=== PATIENT | male | born 1990 | race Caucasian/White ===

== ENCOUNTER 2017-05-12 21:43 | Emergency (ER) | payer OTHER | END 2017-05-13 05:00 | disposition home or self-care (01) | LOC: ER1 21:43 | DX: L02.512 Cutaneous abscess of left hand (principal); L03.012 Cellulitis of left finger; F17.210 Nicotine dependence, cigarettes, uncomplicated | CPT/HCPCS: 99282 ==

== ENCOUNTER 2017-05-14 21:19 | Inpatient (IN) | payer OTHER ==
[~2017-05-14] VITALS: Ht 165.1 cm; Wt 54.4 kg
[2017-05-14 22:18] LABS: HEMOGLOBIN 14.6 gm/dl (14.0-17.5); RED BLOOD COUNT 4.58 M/UL (4.20-5.50); WHITE BLOOD COUNT 9.3 K/UL (4.5-11.0)
[2017-05-14 22:33] LABS: BUN/CREATININE RATIO 7 (0-10)
[2017-05-15 05:15] LABS: HEMOGLOBIN 12.7 gm/dl (14.0-17.5); WHITE BLOOD COUNT 7.6 K/UL (4.5-11.0)
[2017-05-15 05:18] LABS: RED BLOOD COUNT 4.02 M/UL (4.20-5.50)
[2017-05-15 05:39] LABS: BUN/CREATININE RATIO 12 (0-10)
[2017-05-16 06:47] LABS: BUN/CREATININE RATIO 13 (0-10)
[2017-05-17 05:55] LABS: BUN/CREATININE RATIO 14 (0-10)
[2017-05-18 04:16] LABS: BUN/CREATININE RATIO 16 (0-10)
[2017-05-19 05:27] LABS: HEMOGLOBIN 13.5 gm/dl (14.0-17.5); RED BLOOD COUNT 4.3 M/UL (4.20-5.50); WHITE BLOOD COUNT 10.3 K/UL (4.5-11.0)
[2017-05-19 05:44] LABS: BUN/CREATININE RATIO 20 (0-10)
[2017-05-19] MEDS ORDERED: ZYVOX600 MG PO (10:25)
== END 2017-05-19 16:13 | disposition home or self-care (01) | DRG 581 ==
LOC: ER1 21:19 → MED SURG 4 22:47 → ZEROF 22:47 → MED SURG 4 23:39
PROVIDERS: Internal Medicine Infectious Disease; Nurse Practitioner Family; ADMIT Orthopaedic Surgery
PROC: 0J9K0ZZ Drainage of Left Hand Subcutaneous Tissue and Fascia, Open Approach (ICD-10-PCS; principal; 2017-05-15 13:55)
DX: L02.512 Cutaneous abscess of left hand (principal); F17.210 Nicotine dependence, cigarettes, uncomplicated; B95.62 Methicillin resistant Staphylococcus aureus infection as the cause of diseases classified elsewhere
CPT/HCPCS: 36415; 80048; 80053; 80074; 80202; 85025; 85027; 86140; 86780; 87040; 87070; 87077; 87186; 87205; 87390; 96374; 99284; J1200; J2250; J2270; J3010; J3370; J7070; J7120